=== PATIENT | male | born 2000 | race African-American/Black ===

== ENCOUNTER 2020-04-13 13:40 | Emergency (ER) | payer OTHER ==
[~2020-04-13] VITALS: Ht 167.6 cm; Wt 65.0 kg
[2020-04-13 13:41] VITALS: BP 151/82
[2020-04-13] MEDS ORDERED: PRED20TA PO (14:28)
== END 2020-04-13 14:37 | disposition home or self-care (01) ==
LOC: M ED 13:40
DX: L29.9 Pruritus, unspecified (principal); L30.9 Dermatitis, unspecified